=== PATIENT | female | born 1995 | race African-American/Black ===

== ENCOUNTER 2018-11-06 21:47 | Emergency (ER) | payer MEDICAID ==
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
[2018-11-06 22:25] LABS: PLATELET COUNT 306 10^3/uL (150-400)
[2018-11-06 22:51] VITALS: BP 134/83
== END 2018-11-06 22:51 | disposition home or self-care (01) ==
DX: B27.90 Infectious mononucleosis, unspecified without complication (principal); R16.1 Splenomegaly, not elsewhere classified